=== PATIENT | female | born 1955 | race Caucasian/White ===

== ENCOUNTER 2016-06-27 19:18 | Emergency (ER) | payer BC ==
--- NOTE | 2016-06-27 19:53 | Emergency Department Record ---
History of Present Illness - General Chief complaint: Allergic Reaction Stated complaint: ALLERGIC REACTION Time Seen by Provider: 06/27/16 19:36 Source: Patient, Family Mode of Arrival: Ambulatory Limitations: No limitations - History of Present Illness Initial Comments: pt has an allergic rxn to unknown supstance. she ate crab cakes [which she had earlier in the week] and a salad with an oil dressing and developed the allergic rxn after. she had something similar earlier this month and is trying to get in with an observer gravity prospecting. she is having difficulty swallowing and feels tight in the throat. she took 50mg of benadryl around 3-4 hours ago MD Complaint: Allergic reaction, Facial swelling Onset/Timin -: Hour(s) Exposure: Food Symptoms: Difficulty swallowing, Facial swelling, Lip swelling, Hoarseness Severity: Moderate Treatment Prior to Arrival: Benadryl Previous Allergy History: Angioedema - Related Data Home Medications Medication Instructions Recorded Confirmed Last Taken Bisoprolol Fumarate/Hctz [Ziac 1 each PO DAILY 06/15/16 06/27/16 Unknown 10-6.25 mg Tablet] Fluticasone Propionate [Flonase] 2 spray NA DAILY 06/15/16 06/27/16 Unknown Levothyroxine Sodium [Levoxyl] 25 mcg PO DAILYTHY 06/15/16 06/27/16 Unknown Simvastatin [Zocor] 20 mg PO QHS 06/15/16 06/27/16 Unknown Previous Rx's Medication Instructions Recorded Albuterol Sulfate [Proair Hfa] 1 - 2 puff IH .EVERY 4-6 HOURS PRN 06/15/16 #1 inhaler Diphenhydramine HCl [Benadryl] 50 mg PO Q6H #20 cap 06/15/16 Epinephrine [Epipen] 0.3 mg IM ONCE PRN #2 syr 06/15/16 Prednisone [Prednisone 20Mg] 40 mg PO DAILY #2 tab 06/15/16 Ranitidine HCl [Zantac] 150 mg PO BID #20 tablet 06/15/16 Allergies Allergy/AdvReac Type Severity Reaction Status Date / Time succinylcholine chloride Allergy other Verified 06/15/16 02:06 [From Anectine] Sulfa (Sulfonamide AdvReac NAUSEA Verified 06/27/16 19:21 Antibiotics) Travel Screening - Travel/Exposure Within Last 30 Days Have you traveled within the last 30 days?: No Review of Systems Reviewed: No additional complaints except as noted below Constitutional: Reports: As per HPI. Denies: Chills, Fever, Malaise, Night sweats, Weakness, Weight change Eyes: Reports: As per HPI. Denies: Eye discharge, Eye pain, Photophobia, Vision change ENT: Reports: As per HPI. Denies: Congestion, Dental pain, Ear pain, Epistaxis , Hearing loss, Throat pain Respiratory: Reports: As per HPI. Denies: Cough, Dyspnea, Hemoptysis, Stridor, Wheezes Cardiovascular: Reports: As per HPI. Denies: Arrhythmia, Chest pain, Dyspnea on exertion, Edema, Murmurs, Orthopnea, Palpitations, Paroxysmal nocturnal dyspnea, Rheumatic Fever, Syncope Endocrine: Reports: As per HPI. Denies: Fatigue, Heat or cold intolerance, Polydipsia, Polyuria Gastrointestinal: Reports: As per HPI. Denies: Abdominal pain, Constipation, Diarrhea, Hematemesis, Hematochezia, Melena, Nausea, Vomiting Genitourinary: Reports: As per HPI. Denies: Abnormal menses, Discharge, Dyspareunia, Dysuria, Frequency, Hematuria, Incontinence, Retention, Urgency Musculoskeletal: Reports: As per HPI. Denies: Arthralgia, Back pain, Gout, Joint swelling, Myalgia, Neck pain Skin: Reports: As per HPI. Denies: Bruising, Change in color, Change in hair/ nails, Lesions, Pruritus, Rash Neurological: Reports: As per HPI. Denies: Abnormal gait, Confusion, Headache, Numbness, Paresthesias, Seizure, Tingling, Tremors, Vertigo, Weakness Psychiatric: Reports: As per HPI. Denies: Anxiety, Auditory hallucinations, Depression, Homicidal thoughts, Suicidal thoughts, Visual hallucinations Hematological/Lymphatic: Reports: As per HPI. Denies: Anemia, Blood Clots, Easy bleeding, Easy bruising, Swollen glands Past Medical History - SOCIAL HISTORY Smoking Status: Never smoker Alcohol Use: None Drug Use: None - RESPIRATORY Hx Respiratory Disorders: Yes Hx Sleep Apnea: Yes Hx of CPAP: Yes - CARDIOVASCULAR Hx Cardio Disorders: Yes Hx Hypertension: Yes - NEURO Hx Neuro Disorders: No - GI Hx GI Disorders: Yes Hx of Polyps: Yes - Hx Genitourinary Disorders: No - ENDOCRINE Hx Endocrine Disorders: Yes Hx Thyroid Disease: Yes - MUSCULOSKELETAL Hx Musculoskeletal Disorders: No - PSYCH Hx Psych Problems: No - HEMATOLOGY/ONCOLOGY Hx Hematology/Oncology Disorders: Yes Hx Blood Transfusions: Yes (1996 after childbirth) Family Medical History Any Significant Family History?: No Physical Exam - General General Appearance: Alert, Oriented x3, Cooperative, Mild distress - Head Head exam: Normal inspection - Eye Eye exam: Normal appearance, PERRL, EOMI Pupils: Normal accommodation - ENT ENT exam: Normal exam, Mucous membranes moist, Normal external ear exam, Normal orophraynx, TM's normal bilaterally Ear exam: Normal external inspection. negative: External canal tenderness Nasal Exam: Normal inspection. negative: Discharge, Sinus tenderness Mouth exam: Muffled voice, Tongue normal, Other (swelling of lips and uvula) Teeth exam: Normal inspection. negative: Dental caries Throat exam: Normal inspection. negative: Tonsillar erythema, Tonsillar exudate - Neck Neck exam: Normal inspection, Full ROM. negative: Tenderness - Respiratory Respiratory exam: Normal lung sounds bilaterally. negative: Respiratory distress - Cardiovascular Cardiovascular Exam: Regular rate, Normal rhythm, Normal heart sounds - GI/Abdominal GI/Abdominal exam: Soft, Normal bowel sounds. negative: Tenderness - Rectal Rectal exam: Deferred - exam: Deferred - Extremities Extremities exam: Normal inspection, Full ROM, Normal capillary refill. negative: Tenderness - Back Back exam: Reports: Normal inspection, Full ROM. Denies: Muscle spasm, Rash noted, Tenderness - Neurological Neurological exam: Alert, Normal gait, Oriented X3, Reflexes normal - Psychiatric Psychiatric exam: Normal affect, Normal mood - Skin Skin exam: Dry, Intact, Normal color, Warm Course Vital Signs 06/27/16 19:22 Temperature 98.4 F Pulse Rate 70 Respiratory 18 Rate Blood Pressure 159/89 Pulse Ox 98 - Reevaluation(s) Reevaluation #1: 06/27/16 22:27 pt feels better Disposition Disposition: Discharge Clinical Impression: Allergic reaction Qualifiers: Encounter type: initial encounter Qualified Code(s): T78.40XA - Allergy, unspecified, initial encounter Condition: (1) Good Instructions: Food Allergy (ED), General Allergic Reaction (ED) Additional Instructions: follow up with observer gravity prospecting alexandra. sleep elevated. continue benadryl as needed. if reaction happens again use epi pen. Forms: Patient Portal Access
[2016-06-27] MEDS: EPINEPHRINE 1 MG/ML AMPUL IM ONE (19:57)
[2016-06-27] MEDS: FAMOTIDINE IV 20 MG/2 ML VIAL IVP ONE (19:58)
[2016-06-27] MEDS: METHYLPREDNISOLONE PF 125MG/VIAL IVP ONE (19:59)
[2016-06-27] MEDS: DIPHENHYDRAMINE HCL IV 50 MG/ML VIAL IVP ONE (21:23)
== END 2016-06-27 22:46 | disposition home or self-care (01) ==
LOC: ER 19:18
DX: T78.1XXA Other adverse food reactions, not elsewhere classified, initial encounter (principal); R13.10 Dysphagia, unspecified; R22.0 Localized swelling, mass and lump, head
CPT/HCPCS: 99284 ×2; 96374; 96372; 96375; J3490; J0171; J1200; J2930